=== PATIENT | male | born 1940 | race Caucasian/White ===

== ENCOUNTER 2019-03-03 01:24 | Inpatient (IN) ==
--- NOTE | 2019-02-25 08:25 | EKG Report ---
Test Performed on : 02/25/2019 08:20:48 AM Test Reason : PAT Blood Pressure : / mmHG Vent. Rate : 057 BPM Atrial Rate : 058 BPM P-R Int : 240 ms QRS Dur : 110 ms QT Int : 414 ms P-R-T Axes : 066 060 028 degrees QTc Int : 402 ms Undetermined rhythm Otherwise normal ECG When compared with ECG of 13-MAY-2017 17:52, Current undetermined rhythm precludes rhythm comparison, needs review Nonspecific T wave abnormality now evident in Inferior leads Unconfirmed Result
[2019-02-25 08:34] LABS: URINE SOURCE CLEAN CATCH
[2019-02-25 08:42] LABS: BASO# 0.08 X1000 (0.0-0.2); BASO% 1.6 % (0.0-0.8); EOS# 0.23 X1000 (0.0-0.7); EOS% 4.5 % (0.0-10.0); HEMOGLOBIN 13.7 g/dL (14.0-18.0); LYMPH# 1.61 X1000 (1.2-3.4); LYMPH% 31.8 % (20.5-51.1); MCH 30.4 PG (27-31); MCHC 32.6 g/dL (33-37); MCV 93.3 FL (81-99); MONO# 0.56 X1000 (0.11-0.59); MONO% 11.1 % (1.7-9.3); MPV 9.9 FL (7.4-10.4); NEUT# 2.58 X1000 (1.4-6.5); PLT 241 X1000 (130-400); RDW 12.9 % (11.5-14.5); WBC 5.06 X1000 (4.8-10.8)
[2019-02-25 08:43] LABS: BILIRUBIN URINE NEGATIVE (NEGATIVE); BLOOD URINE NEGATIVE (NEGATIVE); COLOR YELLOW; GLUCOSE URINE NEGATIVE (NEGATIVE); KETONE URINE NEGATIVE (NEGATIVE); LEUKOCYTES URINE NEGATIVE (NEGATIVE); NITRITE URINE NEGATIVE (NEGATIVE); PROTEIN URINE 30 mg/dL (NEGATIVE); SP GRAVITY URINE 1.022; TURBIDITY URINE CLEAR (CLEAR); UROBILINOGEN URINE NORMAL (NORMAL)
[2019-02-25 08:44] LABS: UR EPITHELIAL CELLS <10 /HPF (<10); URINE BACTERIA NEGATIVE /HPF; URINE RBC <10 /HPF (<10); URINE WBC <10 /HPF (<10)
[2019-02-25 08:57] LABS: INR 0.97; PTT 27.8 Seconds (22.3-41.8)
[2019-02-25 09:03] LABS: ALBUMIN 4.1 g/dL (3.5-5.0); CALCIUM 9.4 mg/dL (8.8-10.2); CREATININE 1.2 mg/dL (0.7-1.2); POTASSIUM 3.8 mmol/L (3.5-5.1)
[2019-02-25 09:57] LABS: HEMOGLOBIN A1C 6.6 % (4.8-6.0)
[2019-03-03] MEDS ORDERED: ALBUMIN 25% ONE (06:08)
[2019-03-03] MEDS ORDERED: DIPRIVAN 1% ONE (06:13)
[2019-03-03] MEDS ORDERED: FENTANYL ONE (06:14)
[2019-03-03] MEDS ORDERED: MARCAINE 0.25% PF ONE (06:17)
[2019-03-03] MEDS ORDERED: SODIUM CHLORIDE 0.9% ONE (06:17)
[2019-03-03] MEDS ORDERED: DURAMORPH ONE (06:17)
[2019-03-03] MEDS ORDERED: EXPAREL 1.3% ONE (06:17)
[2019-03-03] MEDS ORDERED: TORADOL ONE (06:17)
[2019-03-03] MEDS ORDERED: CYKLOKAPRON 1,000 MG/NS 1,000 MG/100 ML IVPB ONE (06:17)
[2019-03-03] MEDS ORDERED: COLACE ONE (06:35)
[2019-03-03] MEDS ORDERED: PEPCID ONE (06:35)
[2019-03-03] MEDS ORDERED: LYRICA ONE (06:36)
[2019-03-03] MEDS ORDERED: CELEBREX ONE (06:36)
[2019-03-03] MEDS ORDERED: LR 1,000 ML ONE (06:36)
[2019-03-03] MEDS ORDERED: KEFZOL 1 GM/D5W 2 GM/100 ML IVPB ONE (06:36)
[2019-03-03] MEDS ORDERED: REGLAN ONE (06:36)
[2019-03-03] MEDS ORDERED: VERSED ONE (07:22)
[2019-03-03] MEDS ORDERED: EPHEDRINE ONE ×2 (07:57→08:11)
[2019-03-03] MEDS ORDERED: NEO-SYNEPHRINE ONE (09:06)
[2019-03-03] MEDS ORDERED: NS 1,000 ML ONE (09:33)
[2019-03-03 09:44] LABS: URINE SOURCE CATH
[2019-03-03 09:54] LABS: BILIRUBIN URINE NEGATIVE (NEGATIVE); BLOOD URINE NEGATIVE (NEGATIVE); COLOR YELLOW; GLUCOSE URINE TRACE mg/dL (NEGATIVE); KETONE URINE TRACE mg/dL (NEGATIVE); LEUKOCYTES URINE NEGATIVE (NEGATIVE); NITRITE URINE NEGATIVE (NEGATIVE); PH URINE 5.5; PROTEIN URINE 30 mg/dL (NEGATIVE); SP GRAVITY URINE 1.028; TURBIDITY URINE CLEAR (CLEAR); UROBILINOGEN URINE NORMAL (NORMAL)
[2019-03-03 09:56] LABS: UR EPITHELIAL CELLS <10 /HPF (<10); URINE BACTERIA NEGATIVE /HPF; URINE RBC <10 /HPF (<10); URINE WBC <10 /HPF (<10)
[2019-03-03] MEDS ORDERED: FLU VACCINE IM ONE (10:00)
[2019-03-03] MEDS ORDERED: GLUCOTROL XL PO PRN (10:41)
[2019-03-03] MEDS ORDERED: ZOFRAN ODT PO PRN (11:15)
[2019-03-03] MEDS ORDERED: MORPHINE IV PRN ×3 (11:15)
[2019-03-03] MEDS ORDERED: ZOFRAN IV PRN (11:15)
[2019-03-03] MEDS: NS 1,000 ML IV SCH (11:18)
[2019-03-03] MEDS: ULTRAM PO SCH ×3 (11:59→22:41)
[2019-03-03] MEDS: FERROUS SULFATE PO SCH ×2 (12:00→22:41)
[2019-03-03] MEDS: TYLENOL PO SCH ×3 (12:00→22:41)
[2019-03-03] MEDS: OXY IR PO PRN ×3 (14:09→18:47)
[2019-03-03] MEDS: KEFZOL 2 GM/D5W 2 GM/50 ML IVPB IV SCH ×2 (14:15→22:42)
--- NOTE | 2019-03-03 14:41 | OPERATIVE NOTE ---
PROCEDURE DATE: 03/03/2019 PREOPERATIVE DIAGNOSIS: Degenerative joint disease left hip. POSTOPERATIVE DIAGNOSIS: Degenerative joint disease left hip. PROCEDURE PERFORMED: Left anterior hip replacement. SURGEON: Zulma Stringer MD. HUMAN PROJECTILE: MADONNA Delatorre. Mr. Kelsey was necessary for proper retraction and manipulation of the case. ANESTHESIA: Spinal. COMPLICATIONS: None. PROCEDURE IN DETAIL: A 78-year-old male presents for left anterior hip replacement. Risks, benefits, and no guarantees were discussed, and the patient is willing to proceed. The left hip was prepped and draped as noted. After ensuring a proper time-out for patient, site, procedure, and extremity, an anterior approach to the left hip was undertaken. An incision was started roughly 1 cm distal and lateral to the anterior superior iliac spine. This was carried roughly 10 cm over the fascia of the tensor fascia sylvia. This was split in line with the incision, and the tensor was reflected bluntly, and blunt dissection undertaken down the anterior hip capsule. Cobra retractors were placed over the superior and inferior aspect of the femoral neck. A capsulotomy incision was made to expose the joint. The C-arm was used to verify AP pelvis and establish leg length reference prior to osteotomy of the femoral neck. An osteotomy of the femoral neck was then made, and the femoral head removed. A very small Cobra retractors carefully placed directly on the anterior acetabular bone to prevent injury to the anterior neurovascular structures. Sequential reaming of the acetabulum was undertaken up to a 55 reamer. A DePuy DuoFix [place] 56 outer diameter cup was then impacted in the acetabulum under fluoroscopic guidance in roughly 45 degrees of abduction and 15 degrees of anteversion. This had secure press- fit fixation. A 25 length screw was placed in the cup followed by a 36 mm inner diameter with 0 degree polyethylene liner. The liner was impacted in the cup, and the liner cup interface and cup bone interface checked, and noted to be stable. All traction was released off the leg and the hip extended, and externally rotated utilizing the [place] table to expose the proximal femur. Sequential broaching of the proximal femur with the [employer] active broach system was undertaken up to a 6 stem. A high offset collar with a +5 neck length revealed the best latter day of leg length and stability about the hip. The trial stem was removed, and a size 6 high offset neck length DuoFix MANN coated stem impacted in the proximal femur with secure axial and rotational stability. A 36 mm ceramic head with a +5 neck length was impacted onto this and the hip reduced. Final range of motion revealed no posterior instability with flexion of the hip and internal rotation, and anterior instability was assessed by the leg to the floor, hip extension and externally rotating 75 degrees without any anterior instability. The C-arm was used to verify accurate component position, geometry, and leg length. The wound was copiously irrigated with irrigant. The joint capsule was injected with Exparel for pain management. A Hemovac drain was placed. The fascia of the tensor was closed with a running V-Loc suture, the subcutaneous with 2- 0 Vicryl, and the skin with 4-0 Monocryl. Sterile dressings completed the closure. The patient was recovered from anesthesia, and transferred to the recovery room in stable condition. No intraoperative complications were noted. Instrument count and sponge count was correct at the time of closure. cc: Benja Stringer MD
[2019-03-03] MEDS ORDERED: SINGULAIR PO SCH (21:00)
[2019-03-03] MEDS ORDERED: HYTRIN PO SCH (21:00)
--- NOTE | 2019-03-03 21:43 | ORTHOPAEDICS PROGRESS NOTE ---
DATE: 03/03/2019 SUBJECTIVE: Mr. Davis is seen status post hip replacement. At the present time he is afebrile with stable vital signs. His bandage is clean and dry. He is relatively comfortable. He reports relatively good range of motion. He is able to extend the knee and flex the knee as well as dorsiflex and plantar flex the ankle. There is no motor or sensory deficits. He appears to be stable at the present time. We will plan on mobilizing him and discharging him home when he is mobilizing well with therapy. cc: Benja Stringer MD
[2019-03-03] MEDS: PERIDEX MT SCH (22:40)
[2019-03-03] MEDS: VASOTEC PO SCH (22:40)
[2019-03-03] MEDS: COLACE PO SCH (22:41)
[2019-03-03] MEDS: CELEBREX PO SCH (22:41)
[2019-03-03] MEDS: LOPID PO SCH (22:41)
[2019-03-04] MEDS: NS 1,000 ML IV SCH (00:28)
[2019-03-04] MEDS: OXY IR PO PRN ×2 (00:41→11:13)
[2019-03-04] MEDS: ULTRAM PO SCH (06:09)
[2019-03-04] MEDS: TYLENOL PO SCH (06:09)
[2019-03-04 06:39] LABS: HEMOGLOBIN 11.1 g/dL (14.0-18.0)
[2019-03-04 07:00] LABS: CALCIUM 8.9 mg/dL (8.8-10.2); CREATININE 1.2 mg/dL (0.7-1.2); POTASSIUM 4.2 mmol/L (3.5-5.1)
[2019-03-04 08:51] VITALS: BP 144/70
[2019-03-04] MEDS ORDERED: TOPROL XL PO SCH (09:00)
[2019-03-04] MEDS ORDERED: PEPCID PO SCH (09:00)
[2019-03-04] MEDS ORDERED: ZYLOPRIM PO SCH (09:00)
[2019-03-04] MEDS ORDERED: ASPIRIN PO SCH (09:00)
[2019-03-04] MEDS: FERROUS SULFATE PO SCH (09:47)
[2019-03-04] MEDS: COLACE PO SCH (09:47)
[2019-03-04] MEDS: VASOTEC PO SCH (09:47)
[2019-03-04] MEDS: CELEBREX PO SCH (09:47)
[2019-03-04] MEDS: PERIDEX MT SCH (09:48)
[2019-03-04] MEDS: LOPID PO SCH (09:48)
--- NOTE | 2019-03-04 14:50 | ORTHOPAEDICS PROGRESS NOTE ---
DATE: 03/03/2019 SUBJECTIVE: Mr. Davis is seen status post total hip replacement. He has been mobilized with therapy. Currently, he is afebrile with stable vital signs. PLAN: We will plan on discharging him home today for home therapy and outpatient followup. He is to return in the interim for any worsening signs or symptoms. We have placed on [place] 10 as needed for pain, 325 mg aspirin for DVT prophylaxis and Bactrim for wound prophylaxis. We will see him back in roughly 10 days time. He can be mobilized full weightbearing on his hip replacement. cc: Benja Stringer MD
== END 2019-03-04 11:33 | disposition home health service (06) | DRG 470 ==
LOC: SURHOLD 01:24 → 4N 07:26
PROVIDERS: ADMIT Orthopaedic Surgery Adult Reconstructive Orthopaedic Surgery; ATTEND Orthopaedic Surgery Adult Reconstructive Orthopaedic Surgery